=== PATIENT | female | born 1980 | race Caucasian/White ===

== ENCOUNTER 2016-07-06 16:55 | Emergency (ER) | payer OTHER ==
--- NOTE | 2016-07-06 17:59 | PDOC ---
Rapid Medical Evaluation Chief Complaint: Ear Problem Time Seen by Provider: 07/06/16 17:53 Medical Evaluation: Allergies Allergy/AdvReac Type Severity Reaction Status Date / Time No Known Allergies Allergy Verified 12/26/15 11:09 07/06/16 17:54 I have performed a brief in-person evaluation of this patient. The patient presents with a chief complaint of: left ear and throat pain x2 days , no fevers Pertinent physical exam findings:well appearing I have ordered the following:none The patient will proceed to the ED for further evaluation. 07/06/16 17:58
[2016-07-06 18:00] VITALS: BP 147/97; PULSE 66; TEMP 97.8; BMI 31.1
--- NOTE | 2016-07-06 19:00 | PDOC ---
History of Present Illness - General Chief Complaint: Ear Problem Stated Complaint: EAR PROBLEM Time Seen by Provider: 07/06/16 17:53 History Source: Patient Exam Limitations: No Limitations - History of Present Illness Initial Comments: 07/06/16 18:53 35 yr female no medical history c/o left earache for 3 days getting worse now with pain to left jaw, side of face. no fever, no trauma. Past History - Past Medical History Allergies/Adverse Reactions: Allergies Allergy/AdvReac Type Severity Reaction Status Date / Time No Known Allergies Allergy Verified 07/06/16 18:00 Home Medications: Ambulatory Orders Doxycycline Hyclate [Vibratab -] 100 mg PO BID #10 tablet 12/27/15 Ibuprofen 600 mg PO QID #20 tablet 12/27/15 Methylergonovine Maleate [Methergine -] 0.2 mg PO TID #6 tablet 12/27/15 Amoxicillin - [Amoxicillin 500mg Capsule -] 500 mg PO TID #21 capsule 07/06/16 Neomycin/Polymyxn/Hc [Cortisporin Otic Suspenstion -] 5 drop Q6HPO #1 bottle 07/06/16 Other medical history: NONE - Reproductive History (#): 4 Para: 3 - Psycho/Social/Smoking Cessation Hx Anxiety: No Suicidal Ideation: No Smoking History: Never smoked Hx Alcohol Use: No Drug/Substance Use Hx: No Substance Use Type: None Hx Substance Use Treatment: No Review of Systems - Review of Systems Able to Perform ROS?: Yes Is the patient limited Faroese proficient: No Constitutional: No: Symptoms Reported HEENTM: Yes: See HPI *Physical Exam - Vital Signs Last Vital Signs Temp Pulse Resp BP Pulse Ox 97.8 F 66 20 147/97 98 07/06/16 17:59 07/06/16 17:59 07/06/16 17:59 07/06/16 17:59 07/06/16 17:59 - Physical Exam Comments: 07/06/16 18:54 General Appearance: Yes: Nourished, Appropriately Dressed HEENT: positive: EOMI, BRIAN, Normal Voice, Pharynx Normal, Sinus Tenderness, TM Dull (left with erythematous canal with moist canal drainage ), TM Erythema, Other (tender to lower gum line left side , no abscess seen, tender to touch left mandible , FROM of jaw , neg trismus). negative: Pharyngeal Erythema, Nasal Congestion Neck: positive: Lymphadenopathy (R), Lymphadenopathy (L). negative: Tender Respiratory/Chest: positive: Lungs Clear, Normal Breath Sounds. negative: Chest Tender Cardiovascular: positive: Regular Rhythm, Regular Rate Gastrointestinal/Abdominal: positive: Normal Bowel Sounds, Soft Musculoskeletal: positive: Normal Inspection Extremity: positive: Normal Capillary Refill, Normal Inspection, Normal Range of Motion Integumentary: positive: Normal Color, Dry, Warm Neurologic: positive: Fully Oriented, Alert, Normal Mood/Affect, Normal Response , Motor Strength 5/5 Medical Decision Making - Medical Decision Making 07/06/16 18:55 cc: left ear pain , jaw pain no throat pain for 3 days , tender to touch inside lower gum line no fever denies diff swallowing pt states she has had this before and had an ear infection will prescribe amoxicillin and cortisporin ear drops *DC/Admit/Observation/Transfer Diagnosis at time of Disposition: Otitis media Qualifiers: Otitis media type: suppurative Laterality: left Chronicity: acute Recurrence: not specified as recurrent Spontaneous tympanic membrane rupture: without spontaneous rupture Qualified Code(s): H66.002 - Acute suppurative otitis media without spontaneous rupture of ear drum, left ear - Discharge Dispostion Disposition: HOME Condition at time of disposition: Good - Prescriptions Prescriptions: Amoxicillin - [Amoxicillin 500mg Capsule -] 500 mg PO TID #21 capsule Neomycin/Polymyxn/Hc [Cortisporin Otic Suspenstion -] 5 drop Q6HPO #1 bottle - Referrals Referrals: Edgar Gilmore MD [Staff Physician] - - Patient Instructions Additional Instructions: take the medication as prescribed also take motrin for pain as needed no water no qtips in the ear follow with the ENT or your dentist in 2-3 days if no improvement Return to ER if fever, chills, unable to opne mouth fully or any other complaints
== END 2016-07-06 19:41 | disposition home or self-care (01) ==
LOC: JERFT 16:55
DX: H66.002 Acute suppurative otitis media without spontaneous rupture of ear drum, left ear (principal)
CPT/HCPCS: 99281-25

== ENCOUNTER 2017-04-12 16:57 | Emergency (ER) | payer OTHER ==
--- NOTE | 2017-04-12 17:02 | PDOC ---
Rapid Medical Evaluation Time Seen by Provider: 04/12/17 17:01 Medical Evaluation: Allergies Allergy/AdvReac Type Severity Reaction Status Date / Time No Known Allergies Allergy Verified 04/12/17 17:01 04/12/17 17:01 I have performed a brief in-person evaluation of this patient. The patient presents with a chief complaint of: cough w/ body aches, malaise and fever x 3 days Pertinent physical exam findings:Stable w/ unremarkable exam I have ordered the following:nothing The patient will proceed to the ED for further evaluation.
[2017-04-12 17:05] VITALS: BP 146/69; PULSE 105; TEMP 98.7; BMI 34.0
--- NOTE | 2017-04-12 19:00 | PDOC ---
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 daughter with pneumonia. Pt states 3 days of symptoms no chest pain no vomiting or diarrhea. no foreign travel. 04/12/17 19:46 Past History - Past Medical History Allergies/Adverse Reactions: Allergies Allergy/AdvReac Type Severity Reaction Status Date / Time No Known Allergies Allergy Verified 04/12/17 17:01 Home Medications: Ambulatory Orders Azithromycin [Zithromax 250mg Tablets -] 250 mg PO UTDICT #6 tab 04/12/17 Ibuprofen 800 mg PO TID PRN #20 tablet 04/12/17 CVA: No COPD: No DVT: No Dialysis: No - Reproductive History (#): 4 Para: 3 - Immunization History Immunization Up to Date: Yes - Suicide/Smoking/Psychosocial Hx Smoking History: Never smoked Hx Alcohol Use: No Drug/Substance Use Hx: No Substance Use Type: None Hx Substance Use Treatment: No Respiratory Specific PMHX - Complaint Specific PMHX Angina: No Bronchitis: No Pneumonia: No Pulmonary Embolus: No TB (Tuberculosis): No Review of Systems - Review of Systems Able to Perform ROS?: Yes Is the patient limited Citizen [place] proficient: No Constitutional: Yes: Symptoms Reported HEENTM: Yes: Symptoms Reported. No: Dental Problems Respiratory: Yes: Symptoms reported Cardiac (ROS): No: Symptoms Reported ABD/GI: No: Symptoms Reported : No: Symptoms Reported Musculoskeletal: No: Symptoms Reported Integumentary: No: Symptoms Reported Neurological: No: Symptoms reported *Physical Exam - Vital Signs Last Vital Signs Temp Pulse Resp BP Pulse Ox 98.7 F 105 H 16 146/69 98 04/12/17 17:02 04/12/17 17:02 04/12/17 17:02 04/12/17 17:02 04/12/17 17:02 - Physical Exam General Appearance: Yes: Nourished, Appropriately Dressed HEENT: positive: EOMI, BRIAN, Normal ENT Inspection, TMs Normal, Pharynx Normal Neck: positive: Supple. negative: Tender, Lymphadenopathy (R), Lymphadenopathy (L) Respiratory/Chest: positive: Lungs Clear, Normal Breath Sounds. negative: Chest Tender Cardiovascular: positive: Regular Rhythm, Regular Rate Gastrointestinal/Abdominal: positive: Normal Bowel Sounds, Soft Lymphatic: negative: Adenopathy Musculoskeletal: positive: Normal Inspection Medical Decision Making - Medical Decision Making 04/12/17 19:02 cc: cough body aches will check rapid strep flu CXR vitals stable non toxic wet read of xray is negative, however I have told pt we will notify her with official read if any changes in treatment. pt agrees and understands 04/12/17 19:47 *DC/Admit/Observation/Transfer Diagnosis at time of Disposition: Upper respiratory tract infection Qualifiers: URI type: unspecified URI Qualified Code(s): J06.9 - Acute upper respiratory infection, unspecified - Discharge Dispostion Disposition: HOME Condition at time of disposition: Improved - Prescriptions Prescriptions: Azithromycin [Zithromax 250mg Tablets -] 250 mg PO UTDICT #6 tab Ibuprofen 800 mg PO TID PRN #20 tablet PRN Reason: Pain Or Fever - Referrals - Patient Instructions Additional Instructions: drink pleanty of water take motrin as directed for pain /fever increase vitamin C and zinc in your diet take the zpack as directed return to ER if any worsening symptoms beber abundante agua ike motrin segn lo indicado para el dolor / fiebre aumentar la vitamina C y el zinc en wilder dieta ike la zpack shyann se indica regresar a la torsten de emergencia si algn sntoma empeora Print Language: MOHAWK - Post Discharge Activity
[2017-04-12] MEDS ORDERED: IBUPROFEN 600 MG TABLET (FP) PO ONE ×2 (19:44→19:46)
== END 2017-04-12 20:00 | disposition home or self-care (01) ==
LOC: JERFT 16:57
DX: J06.9 Acute upper respiratory infection, unspecified (principal)
CPT/HCPCS: 71020-TC; 84703; 87070; 87430; 87804; 99281-25

== ENCOUNTER 2017-06-16 19:06 | Emergency (ER) | payer OTHER ==
--- NOTE | 2017-06-16 19:50 | PDOC ---
Rapid Medical Evaluation Time Seen by Provider: 06/16/17 19:44 Medical Evaluation: Allergies Allergy/AdvReac Type Severity Reaction Status Date / Time No Known Allergies Allergy Verified 04/12/17 17:01 06/16/17 19:44 I have performed a brief in-person evaluation of this patient. The patient presents with a chief complaint of : Right right eye /forehead on the sidewalk yesterday after she tripped. Pt applied ice on her right eye. + right visual slightly diminished but able to see. Neg LOC Pertinent physical exam findings:Right eye : EOMI. Neg entrapment, neg hypema, neg erythema to conjunctiva I have ordered the followin The patient will proceed to the ED for further evaluation.
[2017-06-16 19:51] VITALS: BP 145/107; PULSE 67; TEMP 98; BMI 34.5
--- NOTE | 2017-06-16 20:30 | PDOC ---
History of Present Illness - General Chief Complaint: Pain Stated Complaint: EYE INJURY Time Seen by Provider: 06/16/17 19:44 History Source: Patient Exam Limitations: No Limitations - History of Present Illness Initial Comments: 06/16/17 20:25 36 yr female states she tripped and fell last night on sidewalk hit right eye, right rib, left knee and right hand,. no LOC no vomiting or dizzyness no meds taken for pain pt has no PMHX. Occurred: reports: yesterday Severity: reports: moderate Pain Location: reports: face, lower extremity, upper extremity Method of Injury: Yes: fall Modifying Factors: improves with: None Loss of Consciousness: no loss of consciousness Past History - Past Medical History Allergies/Adverse Reactions: Allergies Allergy/AdvReac Type Severity Reaction Status Date / Time No Known Allergies Allergy Verified 06/16/17 19:46 Home Medications: Ambulatory Orders Azithromycin [Zithromax 250mg Tablets -] 250 mg PO UTDICT #6 tab 04/12/17 Ibuprofen 800 mg PO TID PRN #20 tablet 04/12/17 CVA: No COPD: No DVT: No Dialysis: No Other medical history: Pt denies - Reproductive History (#): 4 Para: 3 - Immunization History Immunization Up to Date: Yes - Suicide/Smoking/Psychosocial Hx Smoking History: Never smoked Have you smoked in the past 12 months: No Information on smoking cessation initiated: No Hx Alcohol Use: No Drug/Substance Use Hx: No Substance Use Type: None Hx Substance Use Treatment: No Trauma Specific PMHX - Complaint Specific PMHX Arthritis: No Back Injury: No Neck Injury: No Hx Sacro Iliac Joint Dysfunction: No Review of Systems - Review of Systems Able to Perform ROS?: Yes Is the patient limited Setsw[place] proficient: No Constitutional: No: Symptoms Reported HEENTM: Yes: Symptoms Reported. No: Eye Pain, Blurred Vision, Tearing, Recent change in vision, Double Vision, Mouth Swelling Respiratory: No: Cough Cardiac (ROS): No: Symptoms Reported, See HPI ABD/GI: No: Symptoms Reported Musculoskeletal: Yes: Symptoms Reported *Physical Exam - Vital Signs Last Vital Signs Temp Pulse Resp BP Pulse Ox 98.0 F 67 18 145/107 99 06/16/17 19:49 06/16/17 19:49 06/16/17 19:49 06/16/17 19:49 06/16/17 19:49 - Physical Exam General Appearance: Yes: Nourished, Appropriately Dressed HEENT: positive: EOMI, BRIAN, Other (right eye with perorbital swelling, bruising , ttp right orbital wall, cheekbone) Neck: positive: Supple, Other (FROM of the neck ). negative: Tender, Rigidity, Tender lateral, Tender midline Respiratory/Chest: positive: Lungs Clear, Normal Breath Sounds. negative: Chest Tender Cardiovascular: positive: Regular Rhythm, Regular Rate Gastrointestinal/Abdominal: positive: Normal Bowel Sounds, Soft Lymphatic: negative: Adenopathy Musculoskeletal: positive: Normal Inspection Extremity: positive: Normal Capillary Refill, Other (abrasion to the left knee, ttp left patella , FROM nv intact, right hand ttp palmar surface, skin intact, right ribs to flank ttp no crepitus) Integumentary: positive: Normal Color, Dry, Warm Neurologic: positive: cancer genetic counselor II-XII NML intact, Fully Oriented, Alert, Normal Mood/ Affect, Normal Response, Motor Strength 5/5 ED Treatment Course - RADIOLOGY Radiology Studies Ordered: Category Date Time Status ORBIT CT W/O CONTRAST [CT] Stat CT Scan 06/16/17 20:08 Ordered KNEE 3 POS-LEFT [RAD] Stat Radiology 06/16/17 20:07 Ordered RIBS RIGHT SIDE [RAD] Stat Radiology 06/16/17 20:07 Ordered Medical Decision Making - Medical Decision Making 06/16/17 20:30 cc: trip and fall on uneven sidewalk no LOC injury to the right eye , left knee and right hand , right rib area no neck pain FROM neg nvd will r/o for xrays and cat scan. motrin now for pain, ct orbits, xrays 06/16/17 20:33 06/16/17 20:39 *DC/Admit/Observation/Transfer Diagnosis at time of Disposition: Multiple contusions Fall Qualifiers: Encounter type: initial encounter Qualified Code(s): W19.XXXA - Unspecified fall, initial encounter Orbital contusion Qualifiers: Encounter type: initial encounter Laterality: right Qualified Code(s): S05.11XA - Contusion of eyeball and orbital tissues, right eye, initial encounter - Discharge Dispostion Disposition: HOME Condition at time of disposition: Good - Referrals Referrals: Juan R Arteaga MD [Primary Care Provider] - - Patient Instructions Additional Instructions: apply ice every 2hrs for 20 minutes to the area of pain take motrin 600mg every 8hrs for pain as needed (over the counter advil, motrin ) follow with your doctor Monday for any worsening pain - Post Discharge Activity
[2017-06-16] MEDS ORDERED: IBUPROFEN 600 MG TABLET (FP) PO ONE ×2 (20:38→20:43)
== END 2017-06-16 22:43 | disposition home or self-care (01) ==
LOC: JERFT 19:06
DX: S05.11XA Contusion of eyeball and orbital tissues, right eye, initial encounter (principal); R05 Cough; W18.39XA Other fall on same level, initial encounter; Y93.89 Activity, other specified; Y92.410 Unspecified street and highway as the place of occurrence of the external cause
CPT/HCPCS: 70480-TC; 71101-TC-RT-FY; 73130-TC-RT-FY; 73562-TC-LT-FY; 84703; 99281-25

== ENCOUNTER 2018-02-13 23:10 | Emergency (ER) | payer OTHER ==
[2018-02-13 23:15] VITALS: BMI 28.3
[2018-02-13] MEDS ORDERED: SODIUM CHLORIDE 1,000 ML IV STA (23:44)
[2018-02-13] MEDS ORDERED: ONDANSETRON 4 MG/2 ML VIAL IVPUSH STA (23:44)
--- NOTE | 2018-02-13 23:44 | PDOC ---
History of Present Illness <Amber Berry Myranda - Last Filed: 02/13/18 23:43> - General History Source: Patient Exam Limitations: No Limitations - History of Present Illness Initial Comments: 02/14/18 00:20 The patient is a 37 year old female with no past medical history who presents to the emergency department for evaluation of diarrhea and vomiting. The patient reports multiple episodes of non bloody emesis and diarrhea since 7pm. Patient reports being fine earlier in the day. Denies travel outside of country and sick contact. Denies abdominal surgery. The patient denies chest pain, shortness of breath, headache, and dizziness. Denies fevers, chills, constipation, dysuria, hematuria, and urinary urgency/ frequency. Allergies: NKDA Social History: No reported substance use. Surgical History: None PCP: None <Gloria Moses - Last Filed: 02/14/18 00:20> - General Chief Complaint: Vomiting/Diarrhea Stated Complaint: VOMIT & DIARRHEA Time Seen by Provider: 02/13/18 23:38 Past History - Past Medical History CVA: No COPD: No DVT: No Dialysis: No - Reproductive History (#): 4 Para: 3 - Immunization History Immunization Up to Date: Yes - Suicide/Smoking/Psychosocial Hx Smoking History: Never smoked Have you smoked in the past 12 months: No Hx Alcohol Use: No Drug/Substance Use Hx: No Substance Use Type: None Hx Substance Use Treatment: No <Amber Berry Myranda - Last Filed: 02/13/18 23:43> <Gloria Moses - Last Filed: 02/14/18 00:20> - Past Medical History Allergies/Adverse Reactions: Allergies Allergy/AdvReac Type Severity Reaction Status Date / Time No Known Allergies Allergy Verified 06/16/17 19:46 Home Medications: Ambulatory Orders Azithromycin [Zithromax 250mg Tablets -] 250 mg PO UTDICT #6 tab 04/12/17 Ibuprofen 800 mg PO TID PRN #20 tablet 04/12/17 Review of Systems - Review of Systems Able to Perform ROS?: Yes Comments:: CONSTITUTIONAL: Absent: fever, chills, diaphoresis, generalized weakness, malaise, loss of appetite HEENT: Absent: rhinorrhea, nasal congestion, throat pain, throat swelling, difficulty swallowing, mouth swelling, ear pain, eye pain, visual Changes CARDIOVASCULAR: Absent: chest pain, syncope, palpitations, irregular heart rate, lightheadedness , peripheral edema RESPIRATORY: Absent: cough, shortness of breath, dyspnea with exertion, orthopnea, wheezing, stridor, hemoptysis GASTROINTESTINAL: (+)diarrhea. (+)Nausea. (+)Vomiting. Absent: abdominal pain, abdominal distension, constipation, melena, hematochezia GENITOURINARY: Absent: dysuria, frequency, urgency, hesitancy, hematuria, flank pain, genital pain MUSCULOSKELETAL: Absent: myalgia, arthralgia, joint swelling SKIN: Absent: rash, itching, pallor HEMATOLOGIC/IMMUNOLOGIC: Absent: easy bleeding, easy bruising, lymphadenopathy, frequent infections ENDOCRINE: Absent: unexplained weight gain, unexplained weight loss, heat intolerance, cold intolerance NEUROLOGIC: Absent: headache, focal weakness or paresthesias, dizziness, unsteady gait, seizure, mental status changes, bladder or bowel incontinence PSYCHIATRIC: Absent: anxiety, depression, suicidal or homicidal ideation, hallucinations. <Gloria Moses - Last Filed: 02/14/18 00:20> *Physical Exam - Vital Signs Last Vital Signs Temp Pulse Resp BP Pulse Ox 98.8 F 110 H 18 131/82 97 02/13/18 23:12 02/13/18 23:12 02/13/18 23:12 02/13/18 23:12 02/13/18 23:12 <Amber Berry - Last Filed: 02/13/18 23:43> - Vital Signs Last Vital Signs Temp Pulse Resp BP Pulse Ox 98.8 F 110 H 18 131/82 97 02/13/18 23:12 02/13/18 23:12 02/13/18 23:12 02/13/18 23:12 02/13/18 23:12 - Physical Exam Comments: GENERAL: Well developed, well nourished. Awake and alert. No acute distress. HEENT: Normocephalic, atraumatic. PERRLA, EOMI. No conjunctival pallor. Sclera are non- icteric. Moist mucous membranes. Oropharynx is clear. NECK: Supple. Full ROM. No JVD. Carotid pulses 2+ and symmetric, without bruits. No thyromegaly. No lymphadenopathy. CARDIOVASCULAR: (+)Tachycardic. No murmurs, rubs, or gallops. PULMONARY: No evidence of respiratory distress. Lungs clear to auscultation bilaterally. No wheezing, rales or rhonchi. ABDOMINAL: Soft. Non-tender. Non-distended. No rebound or guarding. No organomegaly. Normoactive bowel sounds. MUSCULOSKELETAL Normal range of motion at all joints. No bony deformities or tenderness. No CVA tenderness. EXTREMITIES: No cyanosis. No clubbing. No edema. No calf tenderness. SKIN: Warm and dry. Normal capillary refill. No rashes. No jaundice. NEUROLOGICAL: Alert, awake, appropriate. Cranial nerves 2-12 intact. No deficits to light touch and temperature in face, upper extremities and lower extremities. No motor deficits in the in face, upper extremities and lower extremities. Normoreflexic in the upper and lower extremities. Normal speech. Toes are down- going bilaterally. Gait is normal without ataxia. PSYCHIATRIC: Cooperative. Good eye contact. Appropriate mood and affect. <Gloria Moses - Last Filed: 02/14/18 00:20> ED Treatment Course - LABORATORY CBC & Chemistry Diagram: 02/13/18 23:44 02/13/18 23:44 - ADDITIONAL ORDERS Additional order review: 02/13/18 23:44 RBC 5.36 H MCV 84.9 MCHC 32.6 RDW 14.2 MPV 8.8 Neutrophils % 90.3 H Lymphocytes % 3.6 L D Monocytes % 5.4 Eosinophils % 0.5 Basophils % 0.2 - Medications Given in the ED: ED Medications Discontinued Medications Generic Name Dose Route Start Last Admin Trade Name Freq PRN Reason Stop Dose Admin Ondansetron HCl 4 mg 02/13/18 23:44 02/14/18 00:01 Zofran Injection IVPUSH 02/13/18 23:45 4 mg ONCE STA Administration <Gloria Moses - Last Filed: 02/14/18 00:20> *DC/Admit/Observation/Transfer - Attestations Scribe Attestion: Documentation prepared by Gloria Moses, acting as medical billing and coding instructor for Amber Berry MD. <Gloria Moses - Last Filed: 02/14/18 00:20>
[2018-02-13] MEDS ORDERED: ONDANSETRON 4 MG/2 ML VIAL ONE (23:50)
[2018-02-14 00:12] LABS: BASO % 0.2 % (0-2.0); EOS % 0.5 % (0-4.5); HEMATOCRIT 45.4 % (32.4-45.2); HEMOGLOBIN 14.8 GM/dL (10.7-15.3); LYMPH % 3.6 % (8-40); MCH 27.6 pg (25.7-33.7); MCHC 32.6 g/dl (32.0-36.0); MEAN CELL VOLUME 84.9 fl (80-96); MEAN PLT VOLUME 8.8 fl (7.5-11.1); MONO % 5.4 % (3.8-10.2); NEUT % 90.3 % (42.8-82.8); PLATELET COUNT 281 K/MM3 (134-434); RBC 5.36 M/mm3 (3.60-5.2); RDW 14.2 % (11.6-15.6); WHITE BLOOD COUNT 26.7 K/mm3 (4.0-10.0)
[2018-02-14 00:30] LABS: ALBUMIN 4.4 g/dl (3.4-5.0); ALK PHOS 215 U/L (45-117); ANION GAP 9 MMOL/L (8-16); BILIRUBIN,TOTAL 0.8 mg/dL (0.2-1); BLOOD UREA NITROGEN 20 mg/dL (7-18); CALCIUM 9.9 mg/dL (8.5-10.1); CHLORIDE 109 mmol/L (98-107); CO2 20 mmol/L (21-32); CREATININE 0.4 mg/dL (0.55-1.3); GLUCOSE,RANDOM 125 mg/dL (74-106); LIPASE 145 U/L (73-393); SGOT/AST 25 U/L (15-37); SGPT/ALT 27 U/L (13-61); SODIUM 138 mmol/L (136-145); TOT PROT 8.5 g/dl (6.4-8.2)
[2018-02-14 01:32] LABS: ACANTHOCYTES 0; ANISOCYTOSIS 0; HELMET CELLS 0; HOWELL-JOLLY BODIES 0; MACROCYTOSIS 0; OVALOCYTE 0; PLATELET ESTIMATE NORMAL; ROULEAU 0; SICKELED CELLS 0; TARGET CELLS 0; TEAR DROP CELLS 0; TOXIC GRANULATION 0
[2018-02-14] MEDS ORDERED: SODIUM CHLORIDE 0.9% 500 ML INFUS.BAG IV ONE (02:05)
[2018-02-14 02:44] LABS: BASO % 0.2 % (0-2.0); EOS % 0.2 % (0-4.5); HEMATOCRIT 38.5 % (32.4-45.2); HEMOGLOBIN 12.9 GM/dL (10.7-15.3); LYMPH % 2.9 % (8-40); MCH 28.3 pg (25.7-33.7); MCHC 33.5 g/dl (32.0-36.0); MEAN CELL VOLUME 84.7 fl (80-96); MEAN PLT VOLUME 8.7 fl (7.5-11.1); MONO % 5.6 % (3.8-10.2); NEUT % 91.1 % (42.8-82.8); PLATELET COUNT 234 K/MM3 (134-434); RBC 4.55 M/mm3 (3.60-5.2); RDW 14.3 % (11.6-15.6); WHITE BLOOD COUNT 20.1 K/mm3 (4.0-10.0)
[2018-02-14] MEDS ORDERED: CIPROFLOXACIN 500 MG TABLET (RESTRICTED TO ID) PO ONE (03:14)
--- NOTE | 2018-02-14 03:16 | PDOC ---
*Physical Exam - Vital Signs Last Vital Signs Temp Pulse Resp BP Pulse Ox 98.8 F 110 H 18 131/82 97 02/13/18 23:12 02/13/18 23:12 02/13/18 23:12 02/13/18 23:12 02/13/18 23:12 ED Treatment Course - LABORATORY CBC & Chemistry Diagram: 02/14/18 02:15 02/13/18 23:44 - ADDITIONAL ORDERS Additional order review: Laboratory Results 02/13/18 02/13/18 23:44 23:44 Sodium 138 Potassium 4.0 Chloride 109 H Carbon Dioxide 20 L Anion Gap 9 BUN 20 H Creatinine 0.4 L Creat Clearance w eGFR > 60 Random Glucose 125 H Calcium 9.9 Total Bilirubin 0.8 AST 25 ALT 27 Alkaline Phosphatase 215 H Total Protein 8.5 H Albumin 4.4 Lipase 145 Serum , Qual Negative 02/14/18 02/13/18 02:15 23:44 RBC 4.55 5.36 H MCV 84.7 84.9 MCHC 33.5 32.6 RDW 14.3 14.2 MPV 8.7 8.8 Neutrophils % 91.1 H 90.3 H Lymphocytes % 2.9 L 3.6 L D Monocytes % 5.6 5.4 Eosinophils % 0.2 0.5 Basophils % 0.2 0.2 - Medications Given in the ED: ED Medications Discontinued Medications Generic Name Dose Route Start Last Admin Trade Name Freq PRN Reason Stop Dose Admin Sodium Chloride 1,000 mls @ 1,000 mls/hr 02/13/18 23:44 02/14/18 00:11 Normal Saline - IV 02/14/18 00:43 1,000 mls/hr ASDIR STA Administration Ondansetron HCl 4 mg 02/13/18 23:44 02/14/18 00:01 Zofran Injection IVPUSH 02/13/18 23:45 4 mg ONCE STA Administration Sodium Chloride 1,000 ml 02/14/18 02:05 02/14/18 02:35 Normal Saline - IV 02/14/18 02:06 1,000 ml ONCE ONE Administration Medical Decision Making - Medical Decision Making 02/14/18 03:16 received sign out from Dr. Berry at 2am pending CT results in summary 37 YOF with acute onset n/v/d, AP today vitals initially with tachycardia. no fever labs and lytes with +leukocytosis 26K, down to 20K after fluids and treatment CT a/p with no stones, no appy, colitis vs gastroenteritis, collapsed suspected left ovarian cyst, no diverticulitis, ff or free air. on reexam at 3am, feels improved, abdomen soft, NTND. vs improved, temp down to 98.2, tachycardia improved. remains well and comfortable, nonperitoneal abdomen. pt eager for discharge, which is appropriate. ciprofloxacin/flagyl PO x 7 day course for colitis vs gastroenteritis with multiple episodes. treat empirically, info provided in danish as well. Pt to be discharged in stable condition. Patient and family made aware of impression and plan, return precautions discussed (including but not limited to worsening pain or symptoms), fevers, or signs of infection, chest pain, respiratory distress, inability to tolerate oral intake, dehydration, syncope, or neurologic changes). Follow up with PMD and/or specialist as recommended, follow up information provided, take medications as instructed for duration of time. continue with supportive care, avoid triggers and precipitants. All questions answered to patient's satisfaction and expressed understanding and comfort with this. 02/14/18 06:26 *DC/Admit/Observation/Transfer Diagnosis at time of Disposition: Colitis - Discharge Dispostion Disposition: HOME Condition at time of disposition: Improved Decision to Admit order: No - Prescriptions Prescriptions: Ciprofloxacin [Cipro -] 500 mg PO Q12H #14 tablet metroNIDAZOLE [Flagyl -] 500 mg PO BID #14 tablet - Referrals Ref[facility]: [facility] [Provider Group] [facility] [place] [Provider Group] - Patient Instructions Printed Discharge Instructions: DI for Abdominal Pain-Adult, Gastroenteritis Diet, DI for Colitis Additional Instructions: Your laboratory / imaging results showed signs of infection and inflammation, which had improved CT scan showed a ruptured cyst and signs of gastroenteritis and colitis, which you are going to take antibiotics for Follow up with your physician as instructed, take your medications as instructed including ciprofloxacin and flagyl twice a day with FOOD, for one week course for your symptoms. Return if worsening symptoms including fevers, headache, vomiting, visual or hearing disturbances, abdominal pain, chest pain, shortness of breath, syncope, dehydration, inability to take things by mouth/vomiting, altered mental status, or worsening concerning symptoms. your medications on discharge include antibiotics, side effects may include upset stomach, abdominal pain, vomiting, or diarrhea. do not drink alcohol with your medications. Los resultados de laboratorio / imgenes mostraron signos de infeccin e inflamacin, que haban katia La tomografa computarizada mostr salena rotura de quiste y signos de gastroenteritis y colitis, por lo que se tomarn antibiticos para Michael un seguimiento con wilder mdico segn las instrucciones, tome wanda medicamentos shyann se lo indiquen, incluyendo ciprofloxacina y flagyl dos veces al da con ALIMENTOS, florencio un curso de salena semana para los sntomas. Regrese si los sntomas empeoran, incluyendo fiebre, dolor de pilar, vmitos, trastornos visuales o auditivos, dolor abdominal, dolor de pecho, falta de aliento, sncope, deshidratacin, incapacidad para ike cosas por la boca / vmitos, estado mental alterado o empeoramiento de los sntomas. Wanda medicamentos en el momento del wyatt incluyen antibiticos, los efectos secundarios pueden incluir malestar estomacal, dolor abdominal, vmitos o diarrea. No tome alcohol con wanda medicamentos. Print Language: BULGARIAN - Post Discharge Activity Forms/Work/School Notes: Back to Work
[2018-02-14] MEDS ORDERED: metroNIDAZOLE 500 MG TABLET PO ONE (04:05)
[2018-02-14] MEDS ORDERED: ACETAMINOPHEN 1000 MG/100 ML VIAL (NON FORMULARY) IVPB ONE (04:07)
[2018-02-14] MEDS ORDERED: metroNIDAZOLE 250 MG TABLET ONE (04:38)
[2018-02-14] MEDS ORDERED: ACETAMINOPHEN INJECTION 100 ML IVPB ONE (04:39)
[2018-02-14 06:52] VITALS: BP 123/68; PULSE 88; TEMP 98.5
== END 2018-02-14 06:50 | disposition home or self-care (01) ==
LOC: JER 23:10
PROC: 3E0337Z Introduction of Electrolytic and Water Balance Substance into Peripheral Vein, Percutaneous Approach (ICD-10-PCS; principal; 2018-02-13)
PROC: 3E033NZ Introduction of Analgesics, Hypnotics, Sedatives into Peripheral Vein, Percutaneous Approach (ICD-10-PCS; 2018-02-13)
PROC: 3E033GC Introduction of Other Therapeutic Substance into Peripheral Vein, Percutaneous Approach (ICD-10-PCS; 2018-02-13)
DX: K52.9 Noninfective gastroenteritis and colitis, unspecified (principal)
CPT/HCPCS: 36415; 74177-TC; 80053; 83690; 84703; 85025; 96361; 96374; 96375; 99281-25; J0131; J7030